=== PATIENT | male | born 1960 | race Caucasian/White ===

== ENCOUNTER 2019-05-19 10:28 | Day surgery (SDC) | payer OTHER, BC ==
[2019-05-15 14:55] LABS: Basophils % 0.5 % (0-1.3); Hematocrit 34.6 % (39.6-49.0); Lymphocytes % 10.2 % (15.3-44.8); MPV 6.8 fL (7.6-11.3); RBC Red Blood Cell Count 4.91 M/uL (4.33-5.43)
[2019-05-15 15:04] LABS: Protime INR 0.99
[2019-05-19] MEDS ORDERED: LIDOCAINE 1% MPF 30 ML VIAL ONE (10:48)
[2019-05-19] MEDS ORDERED: propofoL 200 MG/20 ML VIAL IV ONE (10:50)
[2019-05-19] MEDS ORDERED: FENTANYL CITR 100 MCG/2 ML ONE (10:50)
[2019-05-19] MEDS ORDERED: MIDAZOLAM HCL 2 MG/2 ML INJ ONE (10:50)
[2019-05-19] MEDS ORDERED: LIDOCAINE 2% MPF 5 ML VIAL ONE (10:51)
[2019-05-19] MEDS ORDERED: ONDANSETRON 4 MG/2 ML VIAL ONE (10:55)
[2019-05-19] MEDS ORDERED: NA CHLORIDE 0.9% 1,000 ML ONE (11:03)
[2019-05-19] MEDS ORDERED: CEFAZOLIN/SWI 1gm 1 GM/10 ML SYR ONE (11:03)
--- NOTE | 2019-05-19 11:34 | P.OP ---
Preoperative diagnosis: left second digit osteomyelitis Postoperative diagnosis: same Primary procedure: left second digit amputation Other procedure(s): none Anesthesia: local with 12 cc 0.5% marcaine plain Estimated blood loss: <20 cc Specimen: left second digit for pathology Findings: large ulcer dorsum left second pipj with bone exposure Operative Technique: left second digit was amputated with racquet type inscions at the mpj Complications: None Transferred to: Recovery Room Condition: Good
[2019-05-19 14:49] VITALS: BP 188/88; TEMP 97.1; O2SAT 100
--- NOTE | 2019-05-19 23:02 | OP ---
Date of Procedure: 05/19/2019 Surgeon: Marin Domingo Jr, DPM Preoperative Diagnosis: Left second digit osteomyelitis. Postoperative Diagnosis: Left second digit osteomyelitis. Procedure: Left second digit amputation. Pathology: Left second toe sent for pathology. Anesthesia: Local with 12 cc of 0.5% Marcaine plain. Hemostasis: None. Estimated Blood Loss: Less than 20 cc. Materials: 3-0 Prolene. Injectables: None. Complication: None. Procedure In Detail: The patient was brought to [facility] Operating Room, placed on the OR table in supine position. No sedation was given and the patient was injected with 12 cc of 0. 5% Marcaine plain to the left second digit. The patient was prepped and draped in the usual aseptic manner. Attention was directed to the left second digit, at which time a large ulceration with hyper granulation and bone exposure was identified at the PIPJ. At this time, utilizing a racket-type inci maribell at the base of the second digit, skin incision was carried straight to bone. At this point, the toe was disarticulated from the metatarsophalangeal joint utilizing sharp dissection. There was no purulence, no necrotic tissue noted at the incision site. The wound was irrigated with copious amoun ts of normal sterile saline. There was adequate bleeding noted. Remodeling of the skin flaps was pe rformed and closure was obtained using 3-0 Prolene. Sterile dressing consisting of Xeroform, 4x4s, K ling, Kerlix, and an Del wrap was applied to the right lower extremity. The patient tolerated the pr ocedure and anesthesia well and was transferred from OR to recovery with vital signs stable and neuro vascular status unchanged. HUSAM/JUDITH Voice ID: [id number] Report ID: [id number]
== END 2019-05-19 12:25 | disposition home or self-care (01) ==
LOC: OR 10:28
PROVIDERS: ATTEND Podiatrist Foot & Ankle Surgery
PROC: 0Y6S0Z0 Detachment at Left 2nd Toe, Complete, Open Approach (ICD-10-PCS; principal; 2019-05-19 11:30)
DX: E11.69 Type 2 diabetes mellitus with other specified complication (principal); M86.9 Osteomyelitis, unspecified; E11.621 Type 2 diabetes mellitus with foot ulcer; L97.529 Non-pressure chronic ulcer of other part of left foot with unspecified severity; M06.9 Rheumatoid arthritis, unspecified; K50.90 Crohn's disease, unspecified, without complications; F41.9 Anxiety disorder, unspecified; Z87.891 Personal history of nicotine dependence; Z80.9 Family history of malignant neoplasm, unspecified; Z82.49 Family history of ischemic heart disease and other diseases of the circulatory system
CPT/HCPCS: 85025; 36415; 85610; 82947; 88305; 88311; 85730; 28820; J2250; J3010; J0690; J7030; J2405; J2704